=== PATIENT | female | born 1980 | race Caucasian/White ===

== ENCOUNTER → 2017-04-04 | Emergency (ER) | payer OTHER ==
[~2017-04-04] MED LIST: PENICILLIN G BENZATHINE 1,200,000 UNIT/2 ML PFS IM ONE; PENICILLIN G BENZATHINE 2,400,000 UNIT/4 ML PFS ONE
[2017-04-04 05:58] VITALS: BP 115/86; PULSE 94; TEMP 98.1; BMI 25.1
--- NOTE | 2017-04-04 06:05 | PDOC ---
History of Present Illness - General Stated Complaint: SORE THROAT Time Seen by Provider: 04/04/17 05:54 - History of Present Illness Initial Comments: 04/04/17 06:03 CHIEF COMPLAINT: sore throat HISTORY OF PRESENT ILLNESS: 36 yo F with no PMH presents to ED with sore throat x 4 days. Patient reports she has had a fever the past two days and has taken Motrin and Theraflu but the fever returns. Patient denies coughing and sneezing and states that she "just has a sore throat." PAST MEDICAL HISTORY: Denies past medical history FAMILY HISTORY: Denies SOCIAL HISTORY: Denies tobacco, alcohol, illicit drug use. SURGICAL HISTORY: Denies ALLERGIES: No known drug allergies REVIEW OF SYSTEMS General/Constitutional: Fever or chills. Denies weakness, weight change. HEENT: Sore throat. Denies change in vision. Denies ear pain or discharge. Cardiovascular: Denies chest pain or shortness of breath. Respiratory: Denies cough, wheezing, or hemoptysis. Gastrointestinal: Denies nausea, vomiting, diarrhea or constipation. Denies rectal bleeding. Skin and breasts: Denies rash or easy bruising. PHYSICAL EXAM General Appearance: Well-appearing, appropriately dressed. No apparent distress. HEENT: Erythematous tonsils with exudate b/l. EOMI, PERRLA. Respiratory/Chest: Lungs CTAB. Cardiovascular: RRR. S1, S2. Gastrointestinal/Abdominal: Normal bowel sounds. Abdomen soft, non-distended. No tenderness or rebound tenderness. No organomegaly, pulsatile mass, guarding , hernia, hepatomegaly, splenomegaly. Musculoskeletal/Extremities: Normal inspection. FROM of all extremities, normal capillary refill. Pelvis Stable. No CVA tenderness. No tenderness to extremities, pedal edema, swelling, erythema or deformity. Integumentary: Appropriate color, dry, warm. No cyanosis, erythema, jaundice or rash Neurologic: water engineer II-XII intact. Fully oriented, alert. Appropriate mood/affect. Motor strength 5/5. No appreciable EOM palsy, facial droop or sensory deficit. Past History - Past Medical History Home Medications: Ambulatory Orders Ibuprofen 600 mg PO TID PRN #12 tablet 04/04/17 Anemia: No Asthma: No Cancer: No Cardiac Disorders: No CVA: No COPD: No DVT: No Dementia: No Diabetes: No Dialysis: No GI Disorders: No Disorders: No HTN: No Hypercholesterolemia: No HIV: No Kidney Stones: No Liver Disease: No Psychiatric Problems: No Seizures: No Thyroid Disease: No Lung CA: No - Surgical History Appendectomy: No Cardiac Surgery: No Cholecystectomy: Yes (Gallstone Removal) Gastric Stapling: No GI Surgery: No Lung Surgery: No Neurologic Surgery: No - Psycho/Social/Smoking Cessation Hx Anxiety: No Suicidal Ideation: No Smoking History: Never smoked Have you smoked in the past 12 months: No Information on smoking cessation initiated: No Hx Alcohol Use: No Drug/Substance Use Hx: No Substance Use Type: None, Alcohol *Physical Exam - Vital Signs Last Vital Signs Temp Pulse Resp BP Pulse Ox 98.1 F 94 H 18 115/86 100 04/04/17 05:41 04/04/17 05:41 04/04/17 05:41 04/04/17 05:41 04/04/17 05:41 Medical Decision Making - Medical Decision Making 04/04/17 06:05 36 yo F with no PMH presents to ED with sore throat x 4 days. -Rapid strep Strep A positive. Penicillin G IM. *DC/Admit/Observation/Transfer Diagnosis at time of Disposition: Acute streptococcal pharyngitis - Discharge Dispostion Disposition: HOME Condition at time of disposition: Stable Admit: No - Prescriptions Prescriptions: Ibuprofen 600 mg PO TID PRN #12 tablet PRN Reason: pain or fever - Patient Instructions Printed Discharge Instructions: DI for Strep Throat Additional Instructions: Please take Motrin for pain or fever. You have been treated for strep throat and the pain should resolve soon. Follow up with your primary care doctor if symptoms persist for over 2-3 days. If you experience any swelling of the throat causing any difficulty breathing, change in your voice, rash, persistent fever, or any new or worsening symptoms, please return to the ER.
--- NOTE | 2017-04-04 06:13 | PDOC ---
*Physical Exam - Vital Signs Last Vital Signs Temp Pulse Resp BP Pulse Ox 98.1 F 94 H 18 115/86 100 04/04/17 05:41 04/04/17 05:41 04/04/17 05:41 04/04/17 05:41 04/04/17 05:41 Medical Decision Making - Medical Decision Making 04/04/17 06:13 agree with care from YESENIA Santamaria *DC/Admit/Observation/Transfer Diagnosis at time of Disposition: Strep pharyngitis - Prescriptions Prescriptions: Ibuprofen 600 mg PO TID PRN #12 tablet PRN Reason: pain or fever - Patient Instructions Printed Discharge Instructions: DI for Strep Throat Additional Instructions: Please take Motrin for pain or fever. You have been treated for strep throat and the pain should resolve soon. Follow up with your primary care doctor if symptoms persist for over 2-3 days. If you experience any swelling of the throat causing any difficulty breathing, change in your voice, rash, persistent fever, or any new or worsening symptoms, please return to the ER.
== END | disposition home or self-care (01) ==
LOC: JER 05:07
DX: J02.0 Streptococcal pharyngitis (principal); B95.0 Streptococcus, group A, as the cause of diseases classified elsewhere
CPT/HCPCS: 87070; 87077; 87430; 99282-25

== ENCOUNTER 2019-04-06 17:31 | Emergency (ER) | payer OTHER ==
--- NOTE | 2019-04-06 17:36 | PDOC ---
Rapid Medical Evaluation Time Seen by Provider: 04/06/19 17:34 Medical Evaluation: Allergies Allergy/AdvReac Type Severity Reaction Status Date / Time No Known Allergies Allergy Verified 04/04/17 06:31 04/06/19 17:34 I have performed a brief in-person evaluation of this patient. The patient presents with a chief complaint of: dysuria and urinary frequency Pertinent physical exam findings: No CVAT. suprapubic tenderness I have ordered the following: urine The patient will proceed to the ED for further evaluation. Discharge Disposition - Diagnosis Dysuria - Referrals - Patient Instructions - Post Discharge Activity
[2019-04-06 17:38] VITALS: BP 116/67; PULSE 96; TEMP 98.9; BMI 25.9
--- NOTE | 2019-04-06 18:12 | PDOC ---
History of Present Illness - General Chief Complaint: Urinary Problem Stated Complaint: INFECTION NEED TO BE SEEN Time Seen by Provider: 04/06/19 17:34 - History of Present Illness Initial Comments: 04/06/19 18:09 38 y/o F w/o CM presents for evaluation of dysuria x1d Past History - Past Medical History Allergies/Adverse Reactions: Allergies Allergy/AdvReac Type Severity Reaction Status Date / Time No Known Allergies Allergy Verified 04/06/19 17:35 Home Medications: Ambulatory Orders Ibuprofen 600 mg PO TID PRN #12 tablet 04/04/17 Nitrofurantoin Monohyd/M-Cryst [Macrobid -] 100 mg PO BID #14 capsule 04/06/19 Anemia: No Asthma: No Cancer: No Cardiac Disorders: No CVA: No COPD: No DVT: No Dementia: No Diabetes: No Dialysis: No GI Disorders: No Disorders: No HTN: No Hypercholesterolemia: No Kidney Stones: No Liver Disease: No Psychiatric Problems: No Seizures: No Thyroid Disease: No Lung CA: No - Surgical History Appendectomy: No Cardiac Surgery: No Cholecystectomy: Yes (Gallstone Removal) Gastric Stapling: No GI Surgery: No Lung Surgery: No Neurologic Surgery: No - Immunization History Immunization Up to Date: Yes - Suicide/Smoking/Psychosocial Hx Smoking History: Never smoked Have you smoked in the past 12 months: No Hx Alcohol Use: No Drug/Substance Use Hx: No Substance Use Type: None, Alcohol Review of Systems - Review of Systems Constitutional: No: Fever : Yes: Burning, Dysuria *Physical Exam - Vital Signs Last Vital Signs Temp Pulse Resp BP Pulse Ox 98.9 F 96 H 18 116/67 98 04/06/19 17:35 04/06/19 17:35 04/06/19 17:35 04/06/19 17:35 04/06/19 17:35 - Physical Exam Comments: 04/06/19 18:19 HEAD: NC/AT EYES: Conjuntiva clear MS: Full ROM in all joints without edema NEUROLOGIC: No gross sensory or motor deficits, NVID SKIN: Normal color and temperature no lesions or rashes *DC/Admit/Observation/Transfer Diagnosis at time of Disposition: Dysuria, UTI (urinary tract infection) - Referrals Referrals: Earnest Blackburn [Non Staff, Medical] - Bennett Lloyd MD [Staff Physician] - - Patient Instructions Printed Discharge Instructions: Urinary Tract Infection, DI for Urinary Tract Infection (UTI) Additional Instructions: Return to the ER for worsening symptoms, take antibiotics as directed Follow up with internal medicine in 1-2 days - Post Discharge Activity
[2019-04-06 18:44] LABS: HCG,QUALITATIVE URINE Negative
[2019-04-06 19:50] LABS: HYALINE CASTS 4 /lpf (0-8); PH,URINE 6.5 (5.0-8.0); URINE APPEARANCE CLEAR; URINE BACTERIA 327.4 /hpf (NEGATIVE); URINE BILIRUBIN NEGATIVE (NEGATIVE); URINE COLOR YELLOW; URINE GLUCOSE (UA) NEGATIVE (NEGATIVE); URINE KETONE NEGATIVE (NEGATIVE); URINE LEUK ESTERASE NEGATIVE (NEGATIVE); URINE NITRITE NEGATIVE (NEGATIVE); URINE PROTEIN 2+ (NEGATIVE); URINE RBC 493 /hpf (0-4); URINE UROBILINOGEN 0.2 mg/dL (0.2-1.0)
[2019-04-06 20:16] LABS: URINE WBC 5 /hpf (0-5)
== END 2019-04-06 20:40 | disposition home or self-care (01) ==
LOC: JERFT 17:31
DX: N39.0 Urinary tract infection, site not specified (principal)
CPT/HCPCS: 81003; 84703; 87086; 99282-25